=== PATIENT | male | born 2000 | race African-American/Black ===

== ENCOUNTER 2023-03-19 19:05 | Inpatient (IN) | payer MEDICAID ==
[~2023-03-19] VITALS: Ht 182.9 cm; Wt 83.9 kg
[2023-03-19] MEDS ORDERED: HALOPERIDOL 5 MG TABLET PO PRN (21:45)
[2023-03-19 22:26] VITALS: BP 126/72; PULSE 80; RESP 17; TEMP 97.8; O2SAT 98
[2023-03-19] MEDS: ZOLPIDEM TARTRATE 10 MG TABLET PO PRN (22:49)
[2023-03-19] MEDS ORDERED: INFLUENZA VIRUS VACCINE QVS 2023-24 (6MO+)/PF 60 MCG/0.5 ML SYRINGE IM. ONE (23:15)
[2023-03-20 08:21] LABS: FREE T4 (FREE THYROXINE) 1.24 ng/dL (0.76-1.46); THYROID STIMULATING HORMONE 0.93 uIU/mL (0.36-3.74)
[2023-03-20 08:38] VITALS: BP 117/65; PULSE 79; RESP 17; TEMP 97.8; O2SAT 96
[2023-03-20 10:44] LABS: HEMOGLOBIN A1C 5.2 % (3.8-5.6)
[2023-03-20] MEDS ORDERED: CloNIDine HCL 0.1 MG TABLET PO PRN (18:30)
[2023-03-20] MEDS ORDERED: ALBUTEROL SULFATE HFA 90 MCG/PUFF 8 GM INHALER IH PRN (18:30)
[2023-03-20] MEDS ORDERED: LOPERAMIDE HCL 2 MG CAPSULE PO PRN (18:30)
[2023-03-20] MEDS ORDERED: PETROLATUM,WHITE 28 GM JELLY TP PRN (18:30)
[2023-03-20] MEDS ORDERED: DOCUSATE SODIUM 100 MG CAPSULE PO PRN (18:30)
[2023-03-20] MEDS ORDERED: NICOTINE 14 MG/24 HOUR PATCH TD PRN (18:30)
[2023-03-20] MEDS ORDERED: IBUPROFEN 400 MG TABLET PO PRN (18:30)
[2023-03-20] MEDS ORDERED: ACETAMINOPHEN 325 MG TABLET PO PRN (18:30)
[2023-03-20] MEDS ORDERED: ONDANSETRON HCL 4 MG TABLET PO PRN (18:30)
[2023-03-20] MEDS ORDERED: MAG HYDROX/ALUMINUM HYD/SIMETH ES 30 ML SUSPENSION UDCUP PO PRN (18:30)
[2023-03-20] MEDS ORDERED: MAGNESIUM HYDROXIDE SUSPENSION 30 ML UDCUP PO PRN (18:30)
[2023-03-20] MEDS ORDERED: GuaiFENesin/D-METHORPHAN [SUGAR-FREE] 200-20MG/10 ML SYRUP UDCUP PO PRN (18:30)
[2023-03-20 20:24] VITALS: BP 114/62; PULSE 90; RESP 18; TEMP 97.7; O2SAT 98
[2023-03-20] MEDS: ZOLPIDEM TARTRATE 10 MG TABLET PO PRN (20:33)
[2023-03-20] MEDS: RisperiDONE 1 MG TABLET PO SCH (20:33)
[2023-03-21 07:39] LABS: HEMOGLOBIN A1C 5.3 % (3.8-5.6)
[2023-03-21 07:52] LABS: THYROID STIMULATING HORMONE 1.62 uIU/mL (0.36-3.74)
[2023-03-21 09:59] VITALS: BP 131/82; PULSE 67; RESP 18; TEMP 98.2; O2SAT 98
[2023-03-21 20:27] VITALS: BP 136/83; PULSE 66; RESP 16; TEMP 98; O2SAT 97
[2023-03-21] MEDS: RisperiDONE 1 MG TABLET PO SCH (20:50)
[2023-03-22 09:32] VITALS: BP 112/76; PULSE 79; RESP 16; TEMP 97.7; O2SAT 98
[2023-03-22] MEDS: SERTRALINE HCL 50 MG TABLET PO SCH (10:44)
[2023-03-22] MEDS: RisperiDONE 1 MG TABLET PO SCH (20:17)
[2023-03-22] MEDS: ZOLPIDEM TARTRATE 10 MG TABLET PO PRN (20:17)
[2023-03-22 20:48] VITALS: BP 135/76; PULSE 101; RESP 18; TEMP 97.7
[2023-03-23] MEDS: SERTRALINE HCL 50 MG TABLET PO SCH ×2 (08:17→08:51)
[2023-03-23 08:43] VITALS: BP 157/76; PULSE 100; RESP 18; TEMP 97.3; O2SAT 98
[2023-03-23] MEDS: RisperiDONE 1 MG TABLET PO SCH (20:09)
[2023-03-23 20:16] VITALS: BP 142/70; PULSE 90; RESP 18; TEMP 97.8; O2SAT 98
[2023-03-24] MEDS: SERTRALINE HCL 50 MG TABLET PO SCH (08:07)
[2023-03-24] MEDS: LORazepam 2 MG TABLET PO PRN ×2 (08:18→20:37)
[2023-03-24 14:15] VITALS: BP 145/92; PULSE 104; RESP 17; TEMP 97.8; O2SAT 98
[2023-03-24 20:33] VITALS: BP 138/82; PULSE 110; RESP 20; TEMP 98; O2SAT 98
[2023-03-24] MEDS: RisperiDONE 1 MG TABLET PO SCH (20:37)
[2023-03-25 08:39] VITALS: BP 142/92; PULSE 100; RESP 20; TEMP 97.5; O2SAT 95
[2023-03-25] MEDS: SERTRALINE HCL 50 MG TABLET PO SCH (08:44)
[2023-03-25] MEDS: LORazepam 2 MG TABLET PO PRN (19:57)
[2023-03-25 20:14] VITALS: BP 145/80; PULSE 99; RESP 20; TEMP 97.7; O2SAT 97
[2023-03-26 08:39] VITALS: BP 153/94; PULSE 100; RESP 20; TEMP 97.7; O2SAT 99
[2023-03-26] MEDS: RisperiDONE 1 MG TABLET PO SCH ×2 (08:51→16:38)
[2023-03-26] MEDS: SERTRALINE HCL 50 MG TABLET PO SCH (08:51)
[2023-03-26] MEDS: LORazepam 2 MG TABLET PO PRN (08:51)
[2023-03-26 20:26] VITALS: BP 148/95; PULSE 90; RESP 16; TEMP 97.3; O2SAT 99
[2023-03-27 08:11] VITALS: BP 151/86; PULSE 99; RESP 18; TEMP 97.1; O2SAT 97
[2023-03-27] MEDS: SERTRALINE HCL 50 MG TABLET PO SCH (08:12)
[2023-03-27] MEDS: LORazepam 2 MG TABLET PO PRN ×2 (08:12→17:14)
[2023-03-27] MEDS: RisperiDONE 1 MG TABLET PO SCH ×2 (08:12→17:14)
[2023-03-27 20:14] VITALS: RESP 18; TEMP 98.2
[2023-03-28] MEDS: LORazepam 2 MG TABLET PO PRN ×2 (07:40→16:09)
[2023-03-28 08:05] VITALS: BP 155/90; PULSE 82; RESP 18; TEMP 97.3; O2SAT 99
[2023-03-28] MEDS: SERTRALINE HCL 50 MG TABLET PO SCH (08:05)
[2023-03-28] MEDS: RisperiDONE 1 MG TABLET PO SCH ×2 (08:05→16:09)
[2023-03-28 20:40] VITALS: BP 142/84; PULSE 96; RESP 20; TEMP 97.8; O2SAT 98
[2023-03-29] MEDS: RisperiDONE 1 MG TABLET PO SCH ×2 (08:18→16:29)
[2023-03-29] MEDS: SERTRALINE HCL 50 MG TABLET PO SCH (08:18)
[2023-03-29] MEDS: LORazepam 2 MG TABLET PO PRN ×2 (08:18→16:29)
[2023-03-29 08:36] VITALS: BP 138/84; PULSE 100; RESP 17; TEMP 97.6; O2SAT 98
[2023-03-29 20:39] VITALS: BP 129/80; PULSE 88; RESP 18; TEMP 97.7; O2SAT 98
[2023-03-30] MEDS: SERTRALINE HCL 50 MG TABLET PO SCH (08:11)
[2023-03-30] MEDS: RisperiDONE 1 MG TABLET PO SCH ×2 (08:11→16:55)
[2023-03-30 08:28] VITALS: BP 140/76; PULSE 94; RESP 20; TEMP 97.7; O2SAT 99
[2023-03-30 20:19] VITALS: BP 142/78; PULSE 72; RESP 20; TEMP 97.8; O2SAT 98
[2023-03-31 08:37] VITALS: BP 124/87; PULSE 84; RESP 16; TEMP 97.8; O2SAT 97
[2023-03-31 08:38] VITALS: BP 124/87; PULSE 74; RESP 18; TEMP 97.8; O2SAT 97
[2023-03-31] MEDS: RisperiDONE 1 MG TABLET PO SCH ×2 (08:54→17:27)
[2023-03-31] MEDS: SERTRALINE HCL 50 MG TABLET PO SCH (08:54)
[2023-03-31 20:50] VITALS: BP 122/63; PULSE 78; RESP 18; TEMP 97.5; O2SAT 96
[2023-04-01] MEDS: RisperiDONE 1 MG TABLET PO SCH ×2 (08:01→17:12)
[2023-04-01] MEDS: SERTRALINE HCL 50 MG TABLET PO SCH (08:01)
[2023-04-01 08:20] VITALS: BP 141/88; PULSE 97; RESP 18; TEMP 97.3; O2SAT 98
[2023-04-01 22:20] VITALS: BP 128/73; PULSE 89; RESP 18; TEMP 97.8; O2SAT 98
[2023-04-02] MEDS: SERTRALINE HCL 50 MG TABLET PO SCH (08:11)
[2023-04-02] MEDS: RisperiDONE 1 MG TABLET PO SCH (08:12)
[2023-04-02 08:20] VITALS: BP 125/74; PULSE 74; RESP 17; TEMP 97.7; O2SAT 98
[2023-04-02] MEDS ORDERED: SERT-439 PO (10:38)
[2023-04-02] MEDS ORDERED: RISP1TAB98 PO (10:38)
== END 2023-04-02 14:09 | disposition home or self-care (01) | DRG 750 ==
LOC: B3A 21:55
PROVIDERS: ADMIT Psychiatry & Neurology Psychiatry; ATTEND Psychiatry & Neurology Psychiatry
PROC: GZHZZZZ Group Psychotherapy (ICD-10-PCS; principal; 2023-03-20)
DX: F20.0 Paranoid schizophrenia (principal); R45.851 Suicidal ideations; E80.6 Other disorders of bilirubin metabolism; F32.A Depression, unspecified; K59.00 Constipation, unspecified; F12.90 Cannabis use, unspecified, uncomplicated; G47.00 Insomnia, unspecified; Z79.899 Other long term (current) drug therapy
CPT/HCPCS: 80061; 83036; 84439; 84443

== ENCOUNTER 2023-03-20 13:50 | Emergency (ER) | payer MEDICAID ==
[~2023-03-20] VITALS: Ht 190.5 cm; Wt 90.9 kg
[2023-03-20 14:15] VITALS: TEMP 98.4
[2023-03-20 15:43] LABS: BASOPHILS % (AUTO) 1.1 % (0.0-2.0); EOSINOPHILS % (AUTO) 0.2 % (1.0-6.0); HEMATOCRIT 39.6 % (41-53); HEMOGLOBIN 13.6 g/dL (13.5-17.5); LYMPHOCYTES # (AUTO) 2.1 K/uL (1.0-4.8); LYMPHOCYTES % (AUTO) 21.9 % (22.0-44.0); MEAN CORPUSCULAR HEMOGLOBIN 28.9 pg (26.0-34.0); MEAN CORPUSCULAR HGB CONC 34.5 G/dL (31.0-37.0); MEAN CORPUSCULAR VOLUME 84 fL (80-100); MONOCYTES # (AUTO) 0.7 K/uL (0.1-1.0); MONOCYTES % (AUTO) 7.5 % (2.0-9.0); NEUTROPHILS # (AUTO) 6.5 K/uL (1.8-7.7); NEUTROPHILS % (AUTO) 69.3 % (40.0-70.0); PLATELET COUNT (AUTO) 186 K/uL (150-450); RED BLOOD CELL COUNT(AUTO) 4.72 MIL/uL (4.50-5.90); RED CELL DISTRIBUTION WIDTH 13.1 % (11.5-14.5); WHITE BLOOD COUNT (AUTO) 9.4 K/uL (4.5-11.0)
[2023-03-20 15:51] LABS: ANION GAP 12 mmol/L (8-16); CALCIUM, TOTAL 8.9 mg/dL (8.8-10.5); CARBON DIOXIDE 25 mmol/L (22-29); CHLORIDE 104 mmol/L (98-107); CREATININE 1.03 mg/dL (0.60-1.30); GLOMERULAR FILTR. RATE CALC > 60 mL/min (>60); GLUCOSE,RANDOM 85 mg/dL (70-110); POTASSIUM 3.3 mmol/L (3.5-5.1); SODIUM SERUM 141 mmol/L (136-145); UREA NITROGEN, BLOOD 9 mg/dL (7-18)
[2023-03-20 15:57] LABS: ALANINE AMINOTRANSFERASE 22 U/L (12-78); ALBUMIN 3.7 g/dL (3.4-5.0); ALKALINE PHOSPHATASE 51 U/L (46-116); ASPARTATE AMINOTRANSFERASE 46 U/L (15-37); BILIRUBIN,TOTAL 1.3 mg/dL (0.1-1.0)
[2023-03-20 16:31] LABS: ALCOHOL, BLOOD (SERUM) < 3 mg/dL (0-10)
[2023-03-20] MEDS ORDERED: POTASSIUM CHLORIDE 10% 40 MEQ/30 ML LIQUID UDCUP PO ONE (17:00)
[2023-03-20 17:38] VITALS: BP 124/61; PULSE 72; RESP 16
== END 2023-03-20 17:36 | disposition home or self-care (01) ==
LOC: EMS 13:50
DX: H11.33 Conjunctival hemorrhage, bilateral (principal); R23.3 Spontaneous ecchymoses; F29 Unspecified psychosis not due to a substance or known physiological condition; E87.6 Hypokalemia
CPT/HCPCS: 99283; 80053; 85025; 36415; G0480; 99285